=== PATIENT | female | born 1990 | race Caucasian/White ===

== ENCOUNTER 2022-12-09 12:02 | Outpatient (CLI) | payer SELFPAY ==
[2022-12-10 07:24] LABS: Strep A DNA Probe* Not Detected (Not Detectd)
== END 2022-12-09 12:03 | disposition home or self-care (01) ==
LOC: KYNREF 12:02
PROVIDERS: Visit Provider Nurse Practitioner Family
DX: J02.9 Acute pharyngitis, unspecified (principal)
CPT/HCPCS: 87651

== ENCOUNTER 2025-02-08 09:24 | Outpatient (CLI) | payer OTHER, SELFPAY ==
[2025-02-10 03:07] LABS: HPV Source Cervix; HPV, High Risk by TMA Not Detected
== END 2025-02-08 09:25 | disposition home or self-care (01) ==
PROVIDERS: Visit Provider Obstetrics & Gynecology
DX: Z12.4 Encounter for screening for malignant neoplasm of cervix (principal); Z13.6 Encounter for screening for cardiovascular disorders; Z13.1 Encounter for screening for diabetes mellitus
CPT/HCPCS: 80061; 82947; 87624; 87625; 88141; 88142